=== PATIENT | female | born 1980 | race Caucasian/White ===

== ENCOUNTER 2019-06-28 13:56 | Emergency (ER) | payer OTHER ==
[~2019-06-28] VITALS: Ht 157.5 cm; Wt 65.1 kg
[~2019-06-28 13:56] MED LIST: DOCU240C31 PO; IBUP-1222 PO; OXYC-302 PO
[2019-06-28 14:10] VITALS: BP 136/77
[2019-06-28 14:35] LABS: BASOPHILS % (AUTO) 1 % (0-1); EOSINOPHILS # (AUTO) 0.03 x10^3/uL (0-0.4); EOSINOPHILS % (AUTO) 0 % (1-7); LYMPHOCYTES % (AUTO) 20 % (22-44); MD NO; MEAN CORPUSCULAR HEMOGLOBIN 29.3 pg (27.0-34.8); MEAN CORPUSCULAR HGB CONC 33.6 g/dL (32.4-35.8); MEAN CORPUSCULAR VOLUME 87.4 fL (80-100); MEAN PLATELET VOLUME 7.4 fL (7.4-10.4); MONOCYTES # (AUTO) 0.71 x10^3/uL (0.2-0.8); MONOCYTES % (AUTO) 6 % (2-9); NEUTROPHILS # (AUTO) 9.43 x10^3/uL (1.8-6.8); NEUTROPHILS % (AUTO) 73 % (42-75); PLATELET COUNT 333 x10^3/uL (130-400); RED CELL DISTRIBUTION WIDTH 13.7 % (9.6-15.2)
[2019-06-28 14:46] LABS: ALBUMIN 3.9 g/dL (3.4-5.0); ANION GAP 7 mmol/L (5-15); CALCIUM 8.7 mg/dL (8.5-10.1); CHLORIDE 106 mmol/L (98-107)
[2019-06-28 15:02] LABS: CULTURE INDICATED? YES; MICROSCOPIC INDICATED
--- NOTE | 2019-06-28 15:53 | NUR ---
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
== END 2019-06-28 16:59 | disposition home or self-care (01) ==
LOC: ED 16:12
DX: O26.891 Other specified pregnancy related conditions, first trimester (principal); O21.9 Vomiting of pregnancy, unspecified; Z3A.01 Less than 8 weeks gestation of pregnancy
CPT/HCPCS: 36415; 76801; 80048; 81001; 82040; 84702; 85025; 86901; 87086; 99284

== ENCOUNTER 2019-08-15 10:53 | Emergency (ER) | payer OTHER ==
[~2019-08-15] VITALS: Ht 157.5 cm; Wt 66.0 kg
--- NOTE | 2019-08-15 11:04 | NUR ---
PATIENT IS 14 WEEKS AND WENT TO URGENT CARE TODAY AND WAS FOUND TO BE TACHY 120'S, SOB, CHEST PAIN STATES RESPIRATORY IN NATURE, AND OVERALL BODY ACHES. SHE WENT TO [facility] IN THE LAST TWO WEEKS.
--- NOTE | 2019-08-15 11:17 | NUR ---
FIRST CONTACT WITH PT. PATIENT WENT TO URGENT CARE TODAY FOR CHEST PAIN AND SOB/SORE THROAT/COUGHING SINCE THURSDAY. CHEST XRAY PAPERWORK WITH PATIENT. 14 WEEKS . A0. DENIES VB/VD. PT'S AOX4. RESPS EVEN AND UNLABORED. ALL MONITORS IN PLACE. CALL LIGHT WITHIN REACH. 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 PA AT BEDSIDE TO EVALUATE AT THIS TIME.
[2019-08-15] MEDS ORDERED: SODIUM CHLORIDE FLUSH 10ML SYR IVF ONE (11:30)
[2019-08-15] MEDS ORDERED: SODIUM CHLORIDE 0.9% 1,000ML IVBOLUS ONE (11:30)
--- NOTE | 2019-08-15 11:41 | NUR ---
piv est on r ac with no complications. ns infusing at this time. pt tolerated well.
[2019-08-15 11:53] LABS: MEAN CORPUSCULAR HEMOGLOBIN 29.4 pg (27.0-34.8); MEAN CORPUSCULAR HGB CONC 33.9 g/dL (32.4-35.8); MEAN CORPUSCULAR VOLUME 86.9 fL (80-100); PLATELET COUNT 271 x10^3/uL (130-400); RED BLOOD COUNT 4.35 x10^6/uL (3.82-5.3); RED CELL DISTRIBUTION WIDTH 14.2 % (9.6-15.2)
[2019-08-15 12:04] LABS: ALBUMIN 2.7 g/dL (3.4-5.0); ANION GAP 8 mmol/L (5-15); CALCIUM 8.9 mg/dL (8.5-10.1); CHLORIDE 105 mmol/L (98-107)
--- NOTE | 2019-08-15 12:28 | NUR ---
pt resting in [facility]. pt's aox4. resps even and unlabored. all monitors in place. call light within reach.
[2019-08-15 12:29] LABS: BASOPHILS # (AUTO) 0.01 x10^3/uL (0-0.1); BASOPHILS % (AUTO) 0 % (0-1); EOSINOPHILS % (AUTO) 0 % (1-7); LYMPHOCYTES # (AUTO) 0.76 x10^3/uL (1-3.4); LYMPHOCYTES % (AUTO) 4 % (22-44); MD SCAN; MONOCYTES # (AUTO) 0.86 x10^3/uL (0.2-0.8); MONOCYTES % (AUTO) 4 % (2-9); NEUTROPHILS # (AUTO) 19.54 x10^3/uL (1.8-6.8); NEUTROPHILS % (AUTO) 92 % (42-75)
--- NOTE | 2019-08-15 12:31 | NUR ---
PT AMB TO BR WITH STEADY GAIT.
--- NOTE | 2019-08-15 13:05 | NUR ---
PT BACK TO ROOM FROM WITH STEADY GAIT. PT RESTING IN [facility]. RESPS EVEN AND UNLABORED. PT'S AOX4. ALL MONITORS IN PLACE.
[2019-08-15 13:32] VITALS: BP 104/60
== END 2019-08-15 14:05 | disposition home or self-care (01) ==
LOC: ED 12:49
DX: O26.892 Other specified pregnancy related conditions, second trimester (principal); B34.9 Viral infection, unspecified; R11.10 Vomiting, unspecified; R00.0 Tachycardia, unspecified; Z3A.14 14 weeks gestation of pregnancy
CPT/HCPCS: 36415; 80048; 82040; 85025; 87081; 87880; 93005; 96360; 96361; 99285; J7030; 96372; 99283